=== PATIENT | female | born 1995 | race Caucasian/White ===

== ENCOUNTER 2017-03-29 12:41 | Emergency (ER) | payer SELFPAY ==
[2017-03-29 13:35] VITALS: BP 126/76
--- NOTE | 2017-03-29 14:41 | Emergency Department Report ---
Entered by CLAIRE WILKINS, acting as scribe for SHIRA AG NP. Chief Complaint: Abdominal Pain Stated Complaint: ABD PAIN Time Seen by Provider: 03/29/17 13:52 - HPI History of Present Illness: Pt c/o abdominal pain and low back pain. Notes being sexually active without protection. +urgency, frequency, and vaginal discharge - rash and lesions + n/v +vaginal spotting A0. Notes these symptoms are not similar to her miscarriage LMP December 2016. - ROS Review of Systems: All system are negative unless stated in HPI above. - Exam Vital Signs: Vital Signs 03/29/17 13:31 Temperature 98.2 F Pulse Rate 73 Respiratory 16 Rate Blood Pressure 126/76 O2 Sat by Pulse 99 Oximetry Physical Exam: General: well nourished, well developed, 21 year old female in no acute distress and nontoxic in appearance Abdomen: soft. non-distended Back: Right CVA tenderness present. MSE screening note: Focused history and physical exam performed. Due to findings the following was ordered: see above ED Medical Decision Making - Medical Decision Making Patient screened by provider in triage area. Labs sent in for patient. Patient to be seen by MD on main ED side. ED Disposition for MSE Condition: Stable Instructions: Abdominal Pain (ED) This documentation as recorded by the scribe,CLAIRE WILKINS,accurately reflects the service I personally performed and the decisions made by me, SHIRA AG, MAX.
== END 2017-03-29 14:45 | disposition left against medical advice (07) ==
LOC: ED 12:41
DX: R10.9 Unspecified abdominal pain (principal); M54.5 Low back pain; Z53.21 Procedure and treatment not carried out due to patient leaving prior to being seen by health care provider